=== PATIENT | male | born 1955 | race Caucasian/White ===

== ENCOUNTER 2018-07-12 14:25 | Emergency (ER) | payer MEDICAID ==
[2018-07-12 14:33] VITALS: PULSE 104
[2018-07-12] MEDS ORDERED: Albuterol-Ipratrop 3 mg / 0.5 (3 ml) UD INH STA (14:57)
[2018-07-12] MEDS ORDERED: Albuterol-Ipratrop 3 mg / 0.5 (3 ml) UD ONE ×2 (15:04→15:50)
--- NOTE | 2018-07-12 15:06 | C.PDOC ---
History Of Present Illness 64 y/o male with no PMHx presents to the ED complaining of a cough and congestion for 2 weeks. Also reports intermittent subjective fever, though patient afebrile on arrival. He was seen at another institution and discharged home. Patient reports symptoms persisted, prompting him to come in. Otherwise he denies any sore throat, SOB, chest pain, or GI complaints. Time Seen by Provider: 07/12/18 14:51 Chief Complaint (Nursing): Flu-like Symptoms History Per: Patient History/Exam Limitations: no limitations Onset/Duration Of Symptoms: Days Current Symptoms Are (Timing): Still Present Past Medical History Reviewed: Historical Data, Nursing Documentation, Vital Signs Vital Signs: Last Vital Signs Temp 98.6 F 07/12/18 14:28 Pulse 104 H 07/12/18 14:28 Resp 20 07/12/18 14:28 BP 130/76 07/12/18 14:28 Pulse Ox 98 07/12/18 14:28 Surgical History: No Surg Hx Family History: States: Unknown Family Hx - Social History Hx Tobacco Use: No Hx Alcohol Use: Yes Hx Substance Use: No - Immunization History Hx Influenza Vaccination: No Hx Pneumococcal Vaccination: No Review Of Systems Except As Marked, All Systems Reviewed And Found Negative. Constitutional: Positive for: Fever ENT: Positive for: Nose Discharge, Nose Congestion Cardiovascular: Negative for: Chest Pain, Light Headedness Respiratory: Positive for: Cough. Negative for: Shortness of Breath Gastrointestinal: Negative for: Nausea, Vomiting, Diarrhea Skin: Negative for: Rash Neurological: Negative for: Weakness, Dizziness Physical Exam - Physical Exam Appears: Non-toxic, No Acute Distress Skin: Warm, Dry Head: Atraumatic, Normacephalic Eye(s): bilateral: Normal Inspection, PERRL, EOMI Oral Mucosa: Moist Neck: Normal ROM Chest: Symmetrical Cardiovascular: Rhythm Regular, No Murmur Respiratory: No Accessory Muscle Use, No Rales, No Rhonchi, Wheezing (Scattered wheezing, right > left) Gastrointestinal/Abdominal: Soft, No Tenderness, No Distention Extremity: Bilateral: Atraumatic, Normal Color And Temperature Pulses: Left Radial: Normal, Right Radial: Normal Neurological/Psych: Oriented x3, Normal Speech ED Course And Treatment O2 Sat by Pulse Oximetry: 98 (RA) Pulse Ox Interpretation: Normal Medical Decision Making Medical Decision Making: Plan: --Chest x-ray --Flu swab --UA --975 mg PO Tylenol --3 ml INH duoneb On re-evaluation patient reports feeling better. Lungs are clear to auscultation bilaterally. Labs reviewed. Flu is negative. Will treat patient empirically with Tamiflu. Advised to follow up with PMD or the clinic. afebrile well appearing in er speaking full sentnces in nad Disposition Counseled Patient/Family Regarding: Diagnosis, Need For Followup, Rx Given - Disposition Referrals: [facility] [Outside] [facility] [Outside] Disposition: HOME/ ROUTINE Disposition Time: 15:56 Condition: STABLE Prescriptions: RX: Albuterol HFA [Ventolin HFA 90 mcg/actuation (8 g)] 1 puff IH Q6 PRN #1 inhaler PRN Reason: Wheezing Oseltamivir Phosphate [Tamiflu] 75 mg PO BID #10 capsule Instructions: Acute Bronchitis, Viral Syndrome (DC) Forms: [email or web address] (British) - POA Present On Arrival: None - Clinical Impression Clinical Impression: Influenza-like illness - Scribe Statement The provider has reviewed the documentation as recorded by the Denny Bell Provider Attestation: All medical record entries made by the Maeibofelia were at my direction and personally dictated by me. I have reviewed the chart and agree that the record accurately reflects my personal performance of the history, physical exam, medical decision making, and the department course for this patient. I have also personally directed, reviewed, and agree with the discharge instructions and disposition.
[2018-07-12 15:40] LABS: URINE BILIRUBIN NEGATIVE (NEGATIVE); URINE BLOOD 1+ (NEGATIVE); URINE CLARITY Clear (Clear); URINE COLOR Amber (YELLOW); URINE GLUCOSE (UA) NORMAL (Normal); URINE LEUKOCYTE ESTERASE NEG Leu/uL (Negative); URINE PROTEIN NEGATIVE (NEGATIVE)
--- NOTE | 2018-07-12 16:02 | RAD ---
HISTORY: cough COMPARISON: None available. TECHNIQUE: Chest PA and lateral FINDINGS: LUNGS: Biapical pleural thickening. No focal consolidation. Please note that chest x-ray has limited sensitivity for the detection of pulmonary masses. PLEURA: No significant pleural effusion identified. No definite pneumothorax . CARDIOVASCULAR: Heart size appears within normal limits. No atherosclerotic calcification present. OSSEOUS STRUCTURES: No acute osseous abnormality identified. VISUALIZED UPPER ABDOMEN: Unremarkable. OTHER FINDINGS: None. IMPRESSION: Biapical pleural thickening. No focal consolidation.
[2018-07-12 16:15] VITALS: BP 121/59; RESP 16; TEMP 99.8
[2018-07-12 18:06] VITALS: O2SAT 98
== END 2018-07-12 16:21 | disposition home or self-care (01) ==
LOC: C.ER 14:25
DX: J11.1 Influenza due to unidentified influenza virus with other respiratory manifestations (principal)